=== PATIENT | female | born 1940 | race Caucasian/White ===

== ENCOUNTER 2023-07-23 18:40 | Inpatient (IN) | payer OTHER, MEDICARE ==
[2023-07-23] MEDS ORDERED: ACETAMINOPHEN 1000 MG/100 ML BAG IVPB ONE (19:21)
[2023-07-23] MEDS ORDERED: SODIUM CHLORIDE 0.9% 500 ML INFUS.BAG IV ONE (19:21)
[2023-07-23] MEDS ORDERED: ACETAMINOPHEN INJECTION 100 ML IVPB ONE (19:51)
[2023-07-23 20:03] LABS: HEMATOCRIT 36.2 % (32.4-45.2); HEMOGLOBIN 12.3 G/dL (10.7-15.3); MCH 31.9 pg (25.7-33.7); MCHC 33.9 g/dl (32.0-36.0); MEAN CELL VOLUME 94.3 fl (80-96); MEAN PLT VOLUME 9.2 fl (7.5-11.1); PLATELET COUNT 175.2 10^3/uL (134-434); RBC 3.84 10^6/uL (3.60-5.2); RDW 13.5 % (11.6-15.6); WHITE BLOOD COUNT 12.4 10^3/uL (4.0-10.8)
[2023-07-23 20:13] LABS: ALBUMIN 3.8 g/dl (3.4-5.0); BILIRUBIN,TOTAL 1.5 mg/dl (0.2-1); CALCIUM 8.9 mg/dl (8.5-10.1); CREATININE 0.9 mg/dl (0.6-1.3); PHOSPHOROUS 2.4 (2.5-4.9); POTASSIUM 3.4 mmol/L (3.5-5.1)
[2023-07-23] MEDS ORDERED: CEFTRIAXONE 1 GM in DEXTROSE 5%-WATER - 50 ML IVPB ONE (20:53)
[2023-07-23] MEDS ORDERED: cefTRIAXone SODIUM 1 GM VIAL ONE (20:54)
[2023-07-23 21:34] LABS: EPITHELIAL CELLS 0-5 /hpf
[2023-07-23] MEDS ORDERED: ACETAMINOPHEN 325 MG TABLET (FP) PO PRN (21:47)
[2023-07-23] MEDS ORDERED: DOCUSATE SODIUM 100 MG CAPSULE (FP) PO PRN (21:47)
[2023-07-23 22:54] VITALS: BMI 28.8
[2023-07-23] MEDS: ATORVASTATIN CA 10 MG TABLET (FP) PO SCH (23:11)
[2023-07-23] MEDS: traZODone HCL 100 MG TABLET (FP) PO SCH (23:11)
[2023-07-24] MEDS ORDERED: SODIUM CHLORIDE 250 ML IV STA (01:08)
[2023-07-24] MEDS ORDERED: TRIMETHOBENZAMIDE HCL 200MG/2ML INJ IM PRN (06:01)
[2023-07-24 08:07] LABS: INR 1.27 (0.83-1.09); PROTHROMBIN TIME (PATIENT) 14.7 SEC (9.7-13.0)
[2023-07-24 08:09] LABS: ACTIVATED PTT 27.8 SECONDS (25.2-36.5)
[2023-07-24 08:49] LABS: ALBUMIN 3.9 g/dl (3.4-5.0); BILIRUBIN,TOTAL 2.3 mg/dl (0.2-1); CREATININE 0.8 mg/dl (0.6-1.3); PHOSPHOROUS 2.4 (2.5-4.9); POTASSIUM 3.2 mmol/L (3.5-5.1)
[2023-07-24 09:14] LABS: HEMATOCRIT 35.2 % (32.4-45.2); HEMOGLOBIN 11.4 GM/dL (10.7-15.3); MCH 30.3 pg (25.7-33.7); MCHC 32.5 g/dl (32.0-36.0); MEAN CELL VOLUME 93.2 fl (80-96); MEAN PLT VOLUME 9.5 fl (7.5-11.1); PLATELET COUNT 182 10^3/uL (134-434); RBC 3.77 M/mm3 (3.60-5.2); RDW 13.8 % (11.6-15.6); WHITE BLOOD COUNT 14.4 K/mm3 (4.0-10.0)
[2023-07-24] MEDS ORDERED: POTASSIUM CHLORIDE TABS 10 MEQ TABLET.ER (FP) PO ONE (09:31)
[2023-07-24] MEDS: HEPARIN NA (PORCINE) 5,000 UNITS/ML 1ML VIAL SQ SCH ×2 (09:35→21:15)
[2023-07-24] MEDS: LEVOTHYROXINE NA 75 MCG TABLET (FP) PO SCH (09:35)
[2023-07-24] MEDS: CHOLECALCIFEROL (VIT D3) 1,000 UNIT (25 MCG) TABLET PO SCH (09:35)
[2023-07-24] MEDS: CEFTRIAXONE 1 GM in DEXTROSE 5%-WATER - 50 ML IVPB SCH (09:35)
[2023-07-24] MEDS: FOLIC ACID 1 MG TABLET (FP) PO SCH (09:36)
[2023-07-24 11:32] LABS: ANISOCYTOSIS 1+; MACROCYTOSIS 0; OVALOCYTE 1+
[2023-07-24] MEDS: ATORVASTATIN CA 10 MG TABLET (FP) PO SCH (21:14)
[2023-07-24] MEDS: traZODone HCL 100 MG TABLET (FP) PO SCH (21:15)
[2023-07-25 06:13] VITALS: RESP 17
[2023-07-25 09:10] LABS: ALBUMIN 3.2 g/dl (3.4-5.0); CALCIUM 8.6 mg/dl (8.5-10.1); CREATININE 0.8 mg/dl (0.6-1.3); POTASSIUM 3.5 mmol/L (3.5-5.1)
[2023-07-25] MEDS ORDERED: LACTOBACILLUS ACIDOPHILUS 1 TABLET PO SCH (10:00)
[2023-07-25] MEDS: FOLIC ACID 1 MG TABLET (FP) PO SCH (10:31)
[2023-07-25] MEDS: CHOLECALCIFEROL (VIT D3) 1,000 UNIT (25 MCG) TABLET PO SCH (10:31)
[2023-07-25] MEDS: HEPARIN NA (PORCINE) 5,000 UNITS/ML 1ML VIAL SQ SCH (10:31)
[2023-07-25] MEDS: CEFTRIAXONE 1 GM in DEXTROSE 5%-WATER - 50 ML IVPB SCH (10:32)
[2023-07-25] MEDS: LEVOTHYROXINE NA 75 MCG TABLET (FP) PO SCH (10:33)
[2023-07-25 10:59] LABS: BASO % 0.5 % (0-2.0); EOS % 1.2 % (0-4.5); HEMATOCRIT 32.9 % (32.4-45.2); HEMOGLOBIN 10.9 GM/dL (10.7-15.3); LYMPH % 7.9 % (8-40); MCH 30.5 pg (25.7-33.7); MEAN CELL VOLUME 92.3 fl (80-96); MEAN PLT VOLUME 9.6 fl (7.5-11.1); MONO % 6.9 % (3.8-10.2); NEUT % 83.5 % (42.8-82.8); PLATELET COUNT 163 10^3/uL (134-434); RBC 3.57 M/mm3 (3.60-5.2); RDW 13.8 % (11.6-15.6); WHITE BLOOD COUNT 10.6 K/mm3 (4.0-10.0)
[2023-07-25 12:18] VITALS: BP 115/64; PULSE 66; TEMP 98.6
== END 2023-07-25 13:48 | DRG 689 ==
LOC: FER 18:40 → FM/S 21:29
PROVIDERS: ADMIT Internal Medicine; ATTEND Internal Medicine
DX: N39.0 Urinary tract infection, site not specified (principal); G93.41 Metabolic encephalopathy; E87.1 Hypo-osmolality and hyponatremia; K58.9 Irritable bowel syndrome, unspecified; F32.A Depression, unspecified; E03.9 Hypothyroidism, unspecified; I10 Essential (primary) hypertension; F03.90 Unspecified dementia, unspecified severity, without behavioral disturbance, psychotic disturbance, mood disturbance, and anxiety; E78.5 Hyperlipidemia, unspecified; E87.6 Hypokalemia
CPT/HCPCS: 0241U-QW; 36415; 71045-TC-FY; 74019-TC-FY; 80053; 81003; 81015; 82550; 83605; 83690; 83735; 84100; 84439; 84443; 84484; 85025; 85027; 85610; 85730; 87040; 87086; 87186; 93005; 93010; 97116-GP; 97161-GP; 99285-25; J1644

== ENCOUNTER 2024-05-22 23:27 | Emergency (ER) | payer OTHER, MEDICARE ==
[2024-05-22 23:39] VITALS: BP 130/64; PULSE 59; RESP 17; TEMP 97.5; BMI 29.2
== END 2024-05-23 01:13 | disposition home or self-care (01) ==
LOC: FER 23:27
DX: Z04.3 Encounter for examination and observation following other accident (principal)
CPT/HCPCS: 99283-25